=== PATIENT | female | born 1955 | race Caucasian/White ===

== ENCOUNTER → 2017-04-20 | Outpatient (CLI) | payer OTHER ==
--- NOTE | 2017-04-20 20:13 | REP ---
REASON: Back pain. COMPARISON: 05/27/2013 There is loss of disc space height and disc hydrational signal at every level status quo. Paravertebral body height and alignment is unchanged remaining within normal limits. There is a large Schmorl's node seen arising from the superior endplate of L3 status quo. No abnormal signal has developed in the imaged portion of the spinal cord. At the L1-2 level there is a broad based annular bulge which has increased from the prior exam. The anterior thecal sac is flattened and straightened by the discogenic change. Degenerative facet joint changes are again seen bilaterally with thickening of the ligamentum flava essentially unchanged. There was no evidence of foraminal narrowing or an acute disc extrusion. At the L2-3 level there is a large asymmetric broad based annular bulge seen in conjunction with degenerative facet joint changes bilaterally and thickening of the ligamentum flava. The factors in concert are causing moderate central canal stenosis and mild left foraminal narrowing increased from the prior exam. There was no acute disc extrusion. At the L3-4 level there is a large asymmetric broad based annular bulge seen in conjunction with degenerative facet joint changes bilaterally and thickening of the ligamentum flava. The factors in concert are causing moderate central canal stenosis which has increased from the prior exam. There is no evidence of foraminal narrowing on the left. There is unchanged right foraminal compression. There was no acute disc extrusion. At the L4-5 level there is a large asymmetric broad based annular bulge seen on conjunction with a right paracentral disc extrusion with inferior migration status quo. The anterior thecal sac is asymmetrically compressed by the broad based annular bulge and extruded disc material. Degenerative facet joint changes are again bilaterally with thickening of the ligamentum flava and the factors in concert are causing moderate central canal stenosis. The right L4 foraminal nerve is compressed by the discogenic changes status quo. At the L5-S1 level there is a large asymmetric broad based annular bulge. The far right lateral component of which compresses the exited L5 nerve and causes right foraminal stenosis. There is unchanged left foraminal stenosis with more mild left L5 nerve compression. Degenerative facet joint changes are again seen bilaterally with mild thickening of the ligamentum flava. No acute disc extrusion has developed and there is no yas central canal stenosis. The left laminectomy defect is again noted status quo. IMPRESSION: Multilevel discogenic changes and other findings as described above. Signed by Eliezer Pham DO 04/21/2017 09:20 A
== END ==
LOC: M RAD 18:34
PROVIDERS: ATTEND Physician Assistant
DX: M47.816 Spondylosis without myelopathy or radiculopathy, lumbar region (principal); M51.27 Other intervertebral disc displacement, lumbosacral region; M51.26 Other intervertebral disc displacement, lumbar region; M12.88 Other specific arthropathies, not elsewhere classified, other specified site

== ENCOUNTER → 2022-07-01 | Outpatient (CLI) | payer OTHER ==
[~2022-07-01] MED LIST: PROHANCE 279.3MG/ML 15ML VIAL ONE
== END ==
LOC: M PLAIMG 08:33
PROVIDERS: ATTEND Physician Assistant
DX: M51.36 Other intervertebral disc degeneration, lumbar region (principal); M43.06 Spondylolysis, lumbar region; M51.26 Other intervertebral disc displacement, lumbar region; M48.061 Spinal stenosis, lumbar region without neurogenic claudication
CPT/HCPCS: 72158; A9576

== ENCOUNTER 2023-05-14 11:38 | Day surgery (SDC) | payer MEDICARE ==
[~2023-05-14] VITALS: Ht 162.6 cm; Wt 47.8 kg
[~2023-05-14 11:38] MED LIST changes: +ACET300T52 PO; +ATOR40TA75 PO; +CARV12.5 PO; +CYAN500T14 PO; +ECOT81TA5 PO; +FAMO40TA3 PO; +HYDR12.55 PO; +IRON65TA2 PO; +LOSA100T46 PO; +NS 1,000 ML IV ONE; +OMEP40CA5 PO; -PROHANCE 279.3MG/ML 15ML VIAL ONE; +VITA100093 PO
[2023-05-14] MEDS ORDERED: fentaNYL 100 MCG/2 ML INJECTION As Ordered ONE (12:49)
[2023-05-14] MEDS ORDERED: LIDOCAINE 2% 100MG/5ML SDV (FOR ANES.) As Ordered ONE (12:49)
[2023-05-14] MEDS ORDERED: propofoL 200 MG/20 ML VIAL As Ordered ONE (12:49)
[2023-05-14] MEDS ORDERED: ONDANSETRON 4MG 2ML VIAL As Ordered ONE (12:49)
[2023-05-14 13:14] VITALS: TEMP 97.8
[2023-05-14 13:26] VITALS: BP 117/53; O2SAT 98
== END 2023-05-14 13:26 | disposition home or self-care (01) ==
LOC: M OPP 11:38
PROVIDERS: ATTEND Surgery
DX: K44.9 Diaphragmatic hernia without obstruction or gangrene (principal); K25.9 Gastric ulcer, unspecified as acute or chronic, without hemorrhage or perforation; F17.200 Nicotine dependence, unspecified, uncomplicated; Z79.02 Long term (current) use of antithrombotics/antiplatelets; Z79.82 Long term (current) use of aspirin; Z79.891 Long term (current) use of opiate analgesic; Z79.899 Other long term (current) drug therapy
CPT/HCPCS: 43239; 88305; J2405; J3010